=== PATIENT | female | born 1970 | race Caucasian/White ===

== ENCOUNTER → 2016-11-27 | Outpatient (CLI) | payer BC | LOC: MC.RAD 13:10 | DX: Z12.31 Encounter for screening mammogram for malignant neoplasm of breast (principal); N63 Unspecified lump in breast ==

== ENCOUNTER → 2018-05-01 | Outpatient (CLI) | payer BC | LOC: MC.RAD 08:40 | DX: Z12.31 Encounter for screening mammogram for malignant neoplasm of breast (principal); N64.89 Other specified disorders of breast; Z98.890 Other specified postprocedural states ==

== ENCOUNTER → 2018-05-05 | Outpatient (CLI) | payer BC | LOC: MC.RAD 13:28 | DX: R92.8 Other abnormal and inconclusive findings on diagnostic imaging of breast (principal); Z98.890 Other specified postprocedural states ==

== ENCOUNTER → 2019-05-25 | Outpatient (CLI) | payer BC | LOC: MC.RAD 15:26 | DX: Z12.31 Encounter for screening mammogram for malignant neoplasm of breast (principal); Z98.82 Breast implant status ==

== ENCOUNTER → 2020-08-02 | Outpatient (CLI) | payer BC | LOC: MC.RAD 08:45 | DX: Z12.31 Encounter for screening mammogram for malignant neoplasm of breast (principal); Z98.82 Breast implant status ==

== ENCOUNTER → 2021-10-22 | Outpatient (CLI) | payer BC | LOC: MC.RAD 11:10 | DX: Z12.31 Encounter for screening mammogram for malignant neoplasm of breast (principal) ==

== ENCOUNTER → 2024-03-18 | Outpatient (CLI) | payer BC ==
[2005-05-10 05:47] VITALS: TEMP 98
== END ==
LOC: MC.RAD 13:25
DX: Z12.31 Encounter for screening mammogram for malignant neoplasm of breast (principal)

== ENCOUNTER 2024-06-01 12:15 | Day surgery (SDC) | payer BC ==
[~2024-06-01] VITALS: Ht 165.1 cm; Wt 80.9 kg
[2024-06-01 12:55] LABS: URINE APPEARANCE CLOUDY (CLEAR/HAZY); URINE BLOOD 3+ (NEGATIVE); URINE COLOR YELLOW (YELLOW); URINE GLUCOSE NEGATIVE (NEGATIVE); URINE KETONE 3+ (NEGATIVE); URINE NITRATE NEGATIVE (NEGATIVE); URINE PROTEIN(semi-quant) 1+ (NEGATIVE)
[2024-06-01 13:16] LABS: MUCOUS PRESENT (NOT PRESENT); SQUAMOUS EPITHELIAL 0-2 /hpf (0-10); URINE BACTERIA MODERATE /hpf (NONE SEEN); URINE RBC 20-50 /hpf (0-2); URINE WBC 20-50 /hpf (0-2)
[2024-06-01 13:18] LABS: COLLECTION METHOD CLEAN CATCH
[2024-06-01] MEDS ORDERED: Ketorolac 30 MG/ML VIAL IV ONE (15:45)
[2024-06-01] MEDS ORDERED: Ondansetron 4 MG/2 ML VIAL IV ONE (15:45)
[2024-06-01] MEDS ORDERED: NS 1,000 ML IV ONE (15:45)
[2024-06-01 15:57] LABS: BASO # 0.1 K/mm3 (0.0-0.2); BASO % 0.4 % (0.0-2.0); EOS % 0.1 % (0.0-4.0); GRAN # 11.6 K/mm3 (1.4-6.5); GRAN % 88.7 % (42.2-75.2); HEMATOCRIT 45.8 % (37.0-47.0); HEMOGLOBIN 15.7 g/dl (12.5-16.0); LYMPH # 0.8 K/mm3 (1.2-3.4); LYMPH % 6.1 % (20.0-51.0); MEAN CELL VOLUME 89 fl (80.0-100.0); MEAN CORPUSCULAR HEMOGLOBIN 30 pg (27-31); MEAN CORPUSCULAR HGB CONC 34 g/dl (33.0-37.0); MONO # 0.6 K/mm3 (0.1-0.6); MONO % 4.3 % (1.7-9.3); PLATELET COUNT 279 K/mm3 (130-400); RED BLOOD COUNT 5.17 M/mm3 (4.10-5.30); REDCELL DISTRIBUTION WIDTH-CV 12.1 % (11.5-14.5)
[2024-06-01 16:02] LABS: PROTHROMBIN TIME 11.2 SECONDS (9.7-12.8)
[2024-06-01 16:18] LABS: ALBUMIN 4.7 g/dL (3.5-5.0); BILIRUBIN,TOTAL 0.5 mg/dL (0.2-1.2); CREATININE, serum 0.92 mg/dL (0.57-1.11); POTASSIUM 4.1 mEq/L (3.5-4.5)
[2024-06-01] MEDS ORDERED: Morphine 4 MG/ML VIAL IV ONE (16:41)
[2024-06-01] MEDS ORDERED: cefTRIAXone 1 G in Water For Injection,Sterile 10 ML IV ONE (17:30)
[2024-06-01] MEDS ORDERED: fentaNYL 50 MCG/ML 2 ML VIAL IV ONE ×2 (17:30→19:40)
[2024-06-01] MEDS ORDERED: Acetaminophen 325 MG TAB PO PRN (18:45)
[2024-06-01] MEDS ORDERED: NS 1,000 ML IV SCH (18:45)
[2024-06-01] MEDS ORDERED: Ondansetron 4 MG/2 ML VIAL IV PRN (18:45)
[2024-06-01] MEDS ORDERED: Pantoprazole 40 MG in NS 10 ML IV SCH (18:55)
[2024-06-01 21:25] VITALS: BP 130/84; PULSE 70; TEMP 98.5
[2024-06-01 21:47] VITALS: BP_SYST 130
[2024-06-01] MEDS ORDERED: fentaNYL 50 MCG/ML 2 ML VIAL IV PRN (22:15)
[2024-06-01 23:35] VITALS: BP 162/87; PULSE 77; TEMP 98.1
[2024-06-01 23:40] VITALS: BP_SYST 162
[2024-06-02] VITALS (15 sets, daily range): BP systolic 118–150; BP diastolic 68–84; PULSE 69–87; TEMP 97.8–98.6
[2024-06-02 06:40] LABS: BASO # 0.1 K/mm3 (0.0-0.2); BASO % 0.5 % (0.0-2.0); EOS % 0.4 % (0.0-4.0); GRAN # 7.6 K/mm3 (1.4-6.5); GRAN % 71.5 % (42.2-75.2); LYMPH # 1.7 K/mm3 (1.2-3.4); LYMPH % 15.9 % (20.0-51.0); MEAN CELL VOLUME 88 fl (80.0-100.0); MEAN CORPUSCULAR HGB CONC 34 g/dl (33.0-37.0); MEAN PLATELET VOLUME 9.3 fl (7.4-10.4); MONO # 1.2 K/mm3 (0.1-0.6); MONO % 11.3 % (1.7-9.3); PLATELET COUNT 195 K/mm3 (130-400); RED BLOOD COUNT 4.07 M/mm3 (4.10-5.30); REDCELL DISTRIBUTION WIDTH-CV 12.5 % (11.5-14.5)
[2024-06-02 06:53] LABS: MEAN CORPUSCULAR HEMOGLOBIN 30 pg (27-31)
[2024-06-02 06:54] LABS: HEMATOCRIT 35.8 % (37.0-47.0); HEMOGLOBIN 12.3 g/dl (12.5-16.0)
[2024-06-02 06:58] LABS: CALCIUM 8.6 mg/dL (8.4-10.2); CREATININE, serum 0.87 mg/dL (0.57-1.11); POTASSIUM 3.9 mEq/L (3.5-4.5)
[2024-06-02] MEDS ORDERED: LR 1,000 ML IV SCH ×2 (07:00→09:45)
[2024-06-02] MEDS ORDERED: Morphine 4 MG/ML VIAL IV PRN (09:45)
[2024-06-02] MEDS ORDERED: fentaNYL 50 MCG/ML 2 ML VIAL ONE (16:28)
[2024-06-02] MEDS ORDERED: Lidocaine PF 2% (20 MG/ML) 5 ML VIAL ONE (16:28)
[2024-06-02] MEDS ORDERED: Ondansetron 4 MG/2 ML VIAL ONE (16:29)
[2024-06-02] MEDS ORDERED: NS 10 ML IV ONE (16:29)
[2024-06-02] MEDS ORDERED: dexAMETHasone 10 MG/ML VIAL ONE (16:29)
[2024-06-02] MEDS ORDERED: Glycopyrrolate 0.2 MG/ML 1 ML VIAL ONE (16:29)
[2024-06-02] MEDS ORDERED: Ketorolac 30 MG/ML VIAL ONE (16:41)
[2024-06-02] MEDS ORDERED: hydrALAZINE 20 MG/ML 1 ML VIAL IV PRN (16:45)
[2024-06-02] MEDS ORDERED: fentaNYL 50 MCG/ML 1 ML SYRINGE/VIAL [PACU/SDC ONLY] IV PRN (16:45)
[2024-06-02] MEDS ORDERED: HYDROmorphone 1 MG/1 ML SYRINGE [PACU/SDC ONLY] IV PRN (16:45)
[2024-06-02] MEDS ORDERED: Ondansetron 4 MG/2 ML VIAL IV PRN ×2 (16:45→17:45)
[2024-06-02] MEDS ORDERED: droPERidol 2.5 MG/ML 2 ML VIAL IV PRN (16:45)
[2024-06-02] MEDS ORDERED: cefTRIAXone 1 G in Water For Injection,Sterile 10 ML IV SCH (17:00)
[2024-06-02] MEDS ORDERED: Lidocaine 2% (20 MG/ML) 20 ML UROJET UR ONE (17:03)
[2024-06-02] MEDS ORDERED: Iohexol 350 - 100 ML VIAL URETER-R ONE (17:04)
[2024-06-02] MEDS ORDERED: PYRIDIUM 100MG100 MG PO (17:34)
[2024-06-02] MEDS ORDERED: NORCO 325 MG-51 TAB PO (17:34)
[2024-06-02] MEDS ORDERED: Naloxone 0.4 MG/ML VIAL IV PRN (17:45)
[2024-06-02] MEDS ORDERED: Acetaminophen 325 MG TAB PO PRN (17:45)
[2024-06-02] MEDS ORDERED: Hyoscyamine 0.125 MG Sublingual TAB SL PRN (17:45)
== END 2024-06-02 20:51 | disposition home or self-care (01) ==
LOC: COL.ER 12:15 → SDCO 18:58 → COL.ER 18:58 → SURG 18:58 → SDCO 06-02 20:51 → SURG 06-02 20:51
PROVIDERS: Emergency Medicine; Nurse Practitioner
DX: N13.2 Hydronephrosis with renal and ureteral calculous obstruction (principal)
CPT/HCPCS: OP; C1769; C2617; G0378; J0690; J0696; J1100; J1885; J2270; J2405; J2470; J2704; J3010; J7030; J7120; Q9967